=== PATIENT | female | born 1940 | race Caucasian/White ===

== ENCOUNTER 2016-09-14 16:01 | Emergency (ER) | payer OTHER ==
[~2016-09-14] VITALS: Ht 157.5 cm; Wt 70.8 kg
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
[2016-09-14] MEDS ORDERED: LEVOTHYROXINE88 MCG PO (17:03)
[2016-09-14] MEDS ORDERED: OMEPRAZOLE40 M1 PO (17:04)
[2016-09-14] MEDS ORDERED: MAGNESIUM400 M1 PO (17:04)
--- NOTE | 2016-09-14 18:35 | RADIOLOGY REPORT ---
EXAMINATION: XR ELBOW, RIGHT CLINICAL INFORMATION: Right elbow pain and swelling. COMPARISON: None. TECHNIQUE: AP and lateral views of the right elbow. FINDINGS: The bones and soft tissues appear unremarkable. No right elbow fracture or joint effusion is identified. Alignment is anatomic. Joint spaces are maintained. IMPRESSION: No acute fracture or dislocation of the right elbow. No significant elbow joint effusion.
--- NOTE | 2016-09-14 18:37 | RADIOLOGY REPORT ---
EXAMINATION: XR PELVIS AND RIGHT HIP CLINICAL INFORMATION: Right hip pain. COMPARISON: None. TECHNIQUE: Single AP view of the pelvis as well as AP and frog-leg lateral views of the right hip. of the right hip. FINDINGS: No grossly displaced pelvic fractures. The iliopectineal and ilioischial lines are intact. Mild degenerative changes involving the bilateral sacroiliac joints. The sacral arcuate lines are intact. There are also mild degenerative changes involving the bilateral hip joints, left greater than right. No acute fracture or dislocation of the right hip is identified. IMPRESSION: No grossly displaced pelvic fractures. No acute fracture or dislocation of the right hip. Mild degenerative changes involving the bilateral hip joints.
--- NOTE | 2016-09-14 18:38 | RADIOLOGY REPORT ---
EXAMINATION: XR FEMUR, RIGHT CLINICAL INFORMATION: Right lower extremity pain. COMPARISON: Plain films of the right hip 09/14/2016. TECHNIQUE: AP and lateral views of the right femur were obtained. Images of the proximal right femur were obtained during x-ray of the pelvis and right hip. FINDINGS: No acute fracture or dislocation of the right femur. There are mild degenerative changes involving the right hip joint. Also noted are mild degenerative changes involving the right knee joint, notably within the medial tibiofemoral compartment. IMPRESSION: No acute fracture or dislocation of the right femur. Mild degenerative changes involving the right hip and right knee joints.
--- NOTE | 2016-09-14 18:42 | RADIOLOGY REPORT ---
EXAMINATION: XR RIGHT FOOT AND RIGHT ANKLE CLINICAL INFORMATION: Right foot and right ankle pain. COMPARISON: None. TECHNIQUE: AP, lateral and oblique views of the right foot and right ankle. FINDINGS: Right ankle: No acute fracture or dislocation of the right ankle. The ankle mortise is grossly intact. Incidental note is made of a small inferior calcaneal heel spur at the site of insertion of the plantar aponeurosis. No significant ankle joint effusion is identified. A well-corticated density adjacent to the distal phalanx of the right fifth toe may represent a small osteophyte. However, a small avulsion fracture fragment within this region cannot be entirely excluded. Mild degenerative changes involving the first metatarsophalangeal joint as well as the interphalangeal joint. Soft tissues appear unremarkable. IMPRESSION: 1. No acute fracture of the right ankle. 2. A well-corticated density adjacent to the distal phalanx of the right fifth toe may represent a small osteophyte. However, a small avulsion fracture fragment within this region cannot be entirely excluded. Correlate with physical exam and point tenderness within this region.
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
[2016-09-14 20:04] LABS: ABSOLUTE BASOPHIL COUNT 0 /CUMM (0.0-0.2); ABSOLUTE EOSINOPHIL COUNT 0 /CUMM (0.0-0.7); ABSOLUTE LYMPH COUNT 1.6 /CUMM (1.2-3.4); ABSOLUTE MONOCYTE COUNT 0.6 /CUMM (0.10-0.60); BASOPHIL % 0.2 % (0.0-2.0); EOSINOPHIL % 0.1 % (0-5); GRANULOCYTE % 81.7 % (42.2-75.2); MEAN CORPUSCULAR HGB CONC 33.2 G/DL (33.0-37.0); MEAN CORPUSCULAR VOLUME 87.2 FL (81.0-99.0); MEAN PLATELET VOLUME 6.2 FL (7.4-10.4); PLATELET COUNT 291 /CUMM (130-400); RBC DISTRIBUTION WIDTH 14.2 % (11.5-14.5); RED BLOOD CELL CT 4.47 /CUMM (4.20-5.40); WHITE BLOOD CELL COUNT 12.2 /CUMM (4.8-10.8)
[2016-09-14 21:19] VITALS: BP 116/79
== END 2016-09-14 21:33 ==
LOC: ERH 16:01
PROVIDERS: Emergency Medicine
DX: S70.11XA Contusion of right thigh, initial encounter (principal); S50.01XA Contusion of right elbow, initial encounter; V48.0XXA Car driver injured in noncollision transport accident in nontraffic accident, initial encounter
CPT/HCPCS: 73070-RT; 73502-RT; 73552; 73610-RT; 73630-RT; 96372